=== PATIENT | male | born 1970 | race Hispanic/Latino ===

== ENCOUNTER 2017-09-27 12:39 | Inpatient (IN) | payer MEDICAID, OTHER ==
[2017-09-27 12:44] VITALS: BMI 29.7
[2017-09-27 12:51] VITALS: O2SAT 96
--- NOTE | 2017-09-27 12:51 | ED PDOC ---
Arrival/HPI - General Time Seen by Provider: 09/27/17 12:46 Historian: Patient, Other (Chart from [facility]) - History of Present Illness Narrative History of Present Illness (Text): 09/27/17 12:47 A 47 year old male, whose past medical history includes depression, transferred to the emergency department from [facility] for psych admission. Chart reviewed, patient complained of worsening depression 2 nights ago. He stated he wanted to open his gun safe and take the gun to shoot his and himself. On evaluation, patient reports a mild headache since this morning but denies any fever, chills, nausea, vomiting, abdominal pain, chest pain, shortness of breath or any other complaints. Patient denies any drug or alcohol use. Past Medical History - Provider Review Nursing Documentation Reviewed: Yes Family/Social History - Physician Review Nursing Documentation Reviewed: Yes Family/Social History: No Known Family HX Allergies/Home Meds Allergies/Adverse Reactions: Allergies No Known Allergies Allergy (Verified 09/27/17 12:44) Home Medications: Home Meds Medication Instructions Recorded Confirmed Lorazepam [Ativan] 1 mg PO PRN PRN 09/27/17 09/27/17 buPROPion [Bupropion HCl] 300 mg PO DAILY 09/27/17 09/27/17 Review of Systems - Physician Review All systems were reviewed & negative as marked: Yes - Review of Systems Constitutional: absent: Fevers, Night Sweats Respiratory: absent: SOB Cardiovascular: absent: Chest Pain Gastrointestinal: absent: Abdominal Pain, Nausea, Vomiting Neurological: Headache Psychiatric: Depression, Suicidal Ideation, Other (Homicidal ideation) Physical Exam Vital Signs Temp Pulse Resp BP Pulse Ox 09/27/17 12:50 97.5 F L 67 18 130/75 96 Appearance: Positive for: Well-Appearing, Non-Toxic, Comfortable Pain Distress: None Mental Status: Positive for: Alert and Oriented X 3 - Systems Exam Head: Present: Atraumatic, Normocephalic Pupils: Present: PERRL Extroacular Muscles: Present: EOMI Conjunctiva: Present: Normal Mouth: Present: Moist Mucous Membranes Neck: Present: Normal Range of Motion Respiratory/Chest: Present: Clear to Auscultation, Good Air Exchange. No: Respiratory Distress, Accessory Muscle Use Cardiovascular: Present: Regular Rate and Rhythm, Normal S1, S2. No: Murmurs Abdomen: Present: Normal Bowel Sounds. No: Tenderness, Distention, Peritoneal Signs Back: Present: Normal Inspection Upper Extremity: Present: Normal Inspection. No: Cyanosis, Edema Lower Extremity: Present: Normal Inspection. No: Edema Neurological: Present: GCS=15, CN II-XII Intact, Speech Normal Skin: Present: Warm, Dry, Normal Color. No: Rashes Psychiatric: Present: Alert, Oriented x 3, Depressed Mood, Suicidal Ideation, Homicidal Ideation Medical Decision Making ED Course and Treatment: 09/27/17 12:47 Impression: A 47 year old male sent in for psych admission. Patient complains of a mild headache. Differential Diagnosis included but are not limited to: Depression, Suicidal ideation, Homicidal ideation Plan: -- Tylenol for headache. No clinical suspician for SAH. Progress Notes: Patients chart reviewed. Normal labs. EKG shows sinus bradycardia at 56 BPM. -- Patient is medically cleared for psych admission under the service of Dr. Ave Youngblood. - Medication Orders Current Medication Orders: Aripiprazole (Abilify) 2.5 mg PO HS BIANCA Bupropion HCl (Wellbutrin Xl) 300 mg PO DAILY BIANCA Lorazepam (Ativan) 1 mg PO TID PRN; Protocol PRN Reason: Anxiety Lorazepam (Ativan) 2 mg IM Q6H PRN; Protocol PRN Reason: Agitation Zaleplon (Sonata) 5 mg PO HS PRN PRN Reason: Insomnia Ziprasidone (Geodon Cap) 20 mg PO BID PRN; Protocol PRN Reason: Agitation Ziprasidone (Geodon Inj) 20 mg IM Q8H PRN; Protocol PRN Reason: agitation/agression/psychosis Discontinued Medications Acetaminophen (Tylenol 325mg Tab) 650 mg PO STAT STA Stop: 09/27/17 12:48 Last Admin: 09/27/17 13:06 Dose: 650 mg [facility] Pain/Vitals Document 09/27/17 13:06 [facility] (Rec: 09/27/17 13:07 [facility]-[id number]) Pain Reassessment Is This A Pain ReAssessment? No - Scribe Statement The provider has reviewed the documentation as recorded by the Scribe Yanet Stephen Provider Scribe Attestation: All medical record entries made by the Scribe were at my direction and personally dictated by me. I have reviewed the chart and agree that the record accurately reflects my personal performance of the history, physical exam, medical decision making, and the department course for this patient. I have also personally directed, reviewed, and agree with the discharge instructions and disposition. Disposition/Present on Arrival - Present on Arrival Any Indicators Present on Arrival: No - Disposition Have Diagnosis and Disposition been Completed?: Yes Diagnosis: Depression, Suicidal ideation, Homicidal ideation Disposition: HOSPITALIZED Disposition Time: 12:48 Patient Plan: Admission Patient Problems: Current Active Problems Problem Status Onset Bipolar II disorder Acute Depression Acute KESHAI (generalized anxiety disorder) Acute Homicidal ideation Acute MDD (major depressive disorder) Acute Panic disorder Acute Suicidal ideation Acute Condition: FAIR
--- NOTE | 2017-09-27 13:59 | PCM.BM ---
<Heron Quick - Last Filed: 09/27/17 13:56> Treatment Plan Problems - Problems identified on initial assessmt SUICIDAL IDEATION Date Initiated: 09/27/17 Time Initiated: 13:56 Assessment reference: HP, NA, Other Status: Active HOPELESSNESS/HELPLESSNESS Date Initiated: 09/27/17 Time Initiated: 13:58 Assessment reference: HP, NA, Other Status: Active INEFFECTIVE COPING Date Initiated: 09/27/17 Time Initiated: 13:58 Assessment reference: HP, NA, Other Status: Active Treatment assets and liabiliti Patient Assests: adapts well, cooperative, resourceful, physically healthy, negotiates basic needs, cognitively intact Patient Liabilities: other - Milieu Protocol Maintain good personal hygiene: daily Encourage regular showers, daily Remind patient to perform daily oral care, daily Assist patient to perform ADL's Maintain personal safety: daily Educate patient to report safety concerns to staff, daily Monitor environment for contraband/sharps Medication safety: Monitor for expected outcome, potential side effects: daily, Assess barriers to learning: daily, Assess readiness for medication education: daily Discharge/Continuing Care - Education Needs Education Needs: Patient Medication, Patient Diagnosis/Disease Process, Patient Coping Skills, Patient Anger Management skills, Patient Community resources, Patient Activities of Daily Living, Patient Uses of Medical Equipment, Patient Health Practices/Safety, Patient Personal Hygiene/Grooming, Patient Aftercare Safety Plan - Discharge Discharge Criteria: Free of Suicidal thoughts, Free of Homicidal thoughts, Free of agitation, Normal sleep pattern, Ability to care for self <Ave Youngblood - Last Filed: 09/27/17 14:42> - Diagnosis (1) KESHIA (generalized anxiety disorder) Status: Acute Interventions: 09/27/17 14:43 Psychoeducation Psychopharmacology/adjustment of medications as needed/ monitoring possible side effects Evaluate pt on daily basis Discussion of importance of being compliant with medications and follow up appointments Suicide and homicide risk assessment and prevention, coping strategies, safety plan Reduction of symptoms Relaxation techniques and breathing exercises Improve functional status Family involvement Cognitive behavioral therapy as outpatient (2) Panic disorder Status: Acute Interventions: 09/27/17 14:43 Psychoeducation Psychopharmacology/adjustment of medications as needed/ monitoring possible side effects Evaluate pt on daily basis Discussion of importance of being compliant with medications and follow up appointments Suicide and homicide risk assessment and prevention, coping strategies, safety plan Reduction of symptoms Relaxation techniques and breathing exercises Improve functional status Family involvement Cognitive behavioral therapy as outpatient (3) Bipolar II disorder Status: Acute Interventions: 09/27/17 14:43 Psychoeducation Psychopharmacology/adjustment of medications as needed/ monitoring possible side effects Monitor blood level of mood stabilizers Evaluate pt on daily basis Compliance with medications and follow up appointments Suicide and homicide risk assessment and prevention, coping strategies, safety plan Relapse prevention Reduction of symptoms Improve functional status Family involvement As outpatient: cognitive behavioral therapy <Fatmata Call - Last Filed: 09/29/17 16:26>
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
[2017-09-28 07:30] VITALS: RESP 20
[2017-09-28 08:34] LABS: GLUCOSE,FASTING 91 mg/dL (65-110); HDL CHOLESTEROL 38 mg/dL (29-60)
[2017-09-28 08:45] LABS: LDL CHOLESTEROL 122 mg/dL (0-129)
[2017-09-28 08:51] LABS: FREE T4 0.93 ng/dL (0.78-2.19)
[2017-09-28] MEDS: buPROPion 300 mg/24 Hours XL Tab PO SCH (09:02)
[2017-09-28 09:46] LABS: BASO # 0.01 K/mm3 (0.0-2.0); BASO % 0.2 % (0.0-3.0); EOS # 0.1 (0.0-0.7); EOS % 1.8 % (1.5-5.0); GRAN # 3.93 (1.4-6.5); GRAN % 65.8 % (50.0-68.0); HEMOGLOBIN 15.2 g/dL (14.0-18.0); LYMPH # 1.1 (1.2-3.4); LYMPH % 18.7 % (22.0-35.0); MEAN CORPUSCULAR HEMOGLOBIN 31.5 pg (25.0-35.0); MEAN CORPUSCULAR HGB CONC 35.3 g/dl (31.0-37.0); MEAN PLATELET VOLUME 9.7 fl (7.0-11.0); MONO # 0.8 (0.1-0.6); MONO % 13.5 % (1.0-6.0); RBC 4.83 10^6/uL (3.5-6.1); RED CELL DISTRIBUTION WIDTH 13.2 % (11.5-14.5)
[2017-09-28] MEDS: Benzocaine/Menthol (Cepacol) Lozenge MT PRN ×2 (10:40→21:20)
--- NOTE | 2017-09-28 15:21 | PCM.PYCHPN ---
Psychiatric Progress Note - Psychiatric Progress Note Patient seen today, length of contact: 30min Patient Chief Complaint: "I don't find this hospitalization is beneficial for me, usually I am doing well on 1:1 therapy", at the same time pt did not complete his assignments from yesterday. Problems Identified/Issues Discussed: Suicide/ homicide prevention, past psychiatric h/o, current psychiatric symptoms , medical problems, risk/benefits and alternatives of medications, medications compliance, coping strategies, substance abuse h/o, relapse prevention, importance of follow up with psychiatrist and therapist, discharge plan. Medical Problems: pt is relatively healthy Diagnostic Results: 09/28/17 09:38 Lab Results 09/28/17 09:38: WBC 6.0, RBC 4.83, Hgb 15.2, Hct 43.0, MCV 89.0, MCH 31.5, MCHC 35.3, RDW 13.2, Plt Count 183, MPV 9.7, Gran % 65.8, Lymph % (Auto) 18.7 L, Edgar % (Auto) 13.5 H, Eos % (Auto) 1.8, Baso % (Auto) 0.2, Gran # 3.93, Lymph # (Auto) 1.1 L, [place] # (Auto) 0.8 H, Eos # (Auto) 0.1, Baso # (Auto) 0.01 09/28/17 08:00: Free T4 0.93, TSH 3rd Generation 2.12 09/28/17 08:00: Fasting Glucose 91, Triglycerides 66, Cholesterol 174, LDL Cholesterol Direct 122, HDL Cholesterol 38 Vital Signs Temp Pulse Resp BP Pulse Ox 09/28/17 07:29 98.0 F 58 L 20 128/87 09/27/17 16:00 58 L 128/87 09/27/17 12:50 97.5 F L 67 18 130/75 96 DSM 5 Symptoms Update: shortly patient is a 47 year old male, , two kids (boy 14 yo and girl 10yo), 1 previous psychiatric admission at [facility] in August,, two previous suicidal attempts including cutting himself "years back", and status post intentional overdose in August on Valium and ativan, initially patient was referred to [facility] by therapist at IOP program after patient verbalize thoughts or harming his as well as himself by using a gun. pt was transferred to [facility] uneventfully, patient requires further evaluation and stabilization, observation, medication titration. pt was seen in his room, pt presented to be deeply depressed, was staying in bed , talking to this contract writer starring at one spot on the wall, pt also had flat affect. pt said he did not sleep last night that well. pt was offered sonata, risk, benefits and alternatives discussed. pt said his girlfriend was upset because "she found my text messages to my that I miss her", at the same time pt asked his mother to bring documents confirming that had multiple an affairs for "years", when was asked why he asked his mother to do so, pt had no answer. pt was given assignment to find what kind of life he wants to have, will f/u tomorrow. pt still presented depressed, hopeless, helpless, pt said that his did not file restraining order against him, pt also said as per his mother police took the gun out of house. pt tolerates meds well, no side effects observed or reported. AIMS 0, no EPS. Pt requested to have a family meeting with his Bettie. DSM 5 Diagnosis: bipolar II r/o mdd r/o KESHIA r/o panic disorder Medication Change: Yes (patricia red) Medical Record Reviewed: Yes Consults ordered or reviewed: medical consult called Mental Status Examination - Cognitive Function Orientation: Person, Place, Situation, Time Memory: Intact Attention: Poor Concentration: Poor Association: WNL Fund of Knowledge: WNL - Mood Mood: Depressed, Anxious - Affect Affect: Constricted, Other (and tearful) - Formal Thought Process Formal Thought Process: Circumstantial (and overinclusive) - Suicidal Ideation Suicidal Ideation: No Plan: pt adamantly denied thoughts of harming self or others. - Homicidal Ideation Homicidal Ideation: No Plan: denied thoughts of harming others. Goal/Treatment Plan - Goal/Treatment Plan Need for Continued Stay: Remain at risks for inpatient hospitalization, Severe depression anxiety, Discharge may exacerbated symptoms, Failed transitioning, Severe functional impairment Progress Toward Problem(s) and Goals/Treatment Plan: Milieu/structure/supportive therapy Medical consult appreciated, see medical team note for more detailed info SW consultation for discharge plan and social issues Med management Lorazepam [Ativan] 1 mg POtid prn for anxiety buPROPion [Bupropion HCl] 300 mg PO DAILY will be continued, for depression abilify 5mg po hs for mood stabilization sonata 5mg po hs for insomnia Family involvement Follow up on labs Will monitor closely Pt was educated about risk/benefits and alternatives of medications, coping strategies (safety plan, suicide prevention), relapse prevention, importance of follow up with psychiatrist and therapist, stay away from drugs/alcohol/smoking Estimated Date of D/C: 10/03/17 - Smoking Cessation Smoking Cessation Initiated: No Reason for not providing: denied smoking
--- NOTE | 2017-09-28 16:03 | CP.PCM.HP ---
Past Patient History - Past Social History Smoking Status: Never Smoked - CARDIAC Hx Cardiac Disorders: No - PULMONARY Hx Respiratory Disorders: No - NEUROLOGICAL Hx Neurological Disorder: No - HEENT Hx HEENT Problems: No - RENAL Hx Chronic Kidney Disease: No - ENDOCRINE/METABOLIC Hx Endocrine Disorders: No - HEMATOLOGICAL/ONCOLOGICAL Hx Blood Disorders: No - INTEGUMENTARY Hx Dermatological Problems: No - MUSCULOSKELETAL/RHEUMATOLOGICAL Hx Musculoskeletal Disorders: No - GASTROINTESTINAL Hx Gastrointestinal Disorders: No - GENITOURINARY/GYNECOLOGICAL Hx Genitourinary Disorders: No - PSYCHIATRIC Hx Substance Use: No - SURGICAL HISTORY Hx Surgeries: No Meds Allergies/Adverse Reactions: Allergies Allergy/AdvReac Type Severity Reaction Status Date / Time No Known Allergies Allergy Verified 09/28/17 02:27 Results - Vital Signs Recent Vital Signs: Last Vital Signs Temp 98.0 F 09/28/17 07:29 Pulse 58 L 09/28/17 07:29 Resp 20 09/28/17 07:29 BP 128/87 09/28/17 07:29 Pulse Ox 96 09/27/17 12:50 - Labs Result Diagrams: 09/28/17 09:38 Labs: Laboratory Results - last 24 hr 09/28/17 09/28/17 09/28/17 08:00 08:00 09:38 WBC 6.0 RBC 4.83 Hgb 15.2 Hct 43.0 MCV 89.0 MCH 31.5 MCHC 35.3 RDW 13.2 Plt Count 183 MPV 9.7 Gran % 65.8 Lymph % (Auto) 18.7 L [place] % (Auto) 13.5 H Eos % (Auto) 1.8 Baso % (Auto) 0.2 Gran # 3.93 Lymph # (Auto) 1.1 L [place] # (Auto) 0.8 H Eos # (Auto) 0.1 Baso # (Auto) 0.01 Fasting Glucose 91 Triglycerides 66 Cholesterol 174 LDL Cholesterol Direct 122 HDL Cholesterol 38 Free T4 0.93 TSH 3rd Generation 2.12
--- NOTE | 2017-09-29 04:19 | CP.PCM.CON ---
<Chandana Fernández - Last Filed: 09/29/17 04:16> History of Present Illness - History of Present Illness History of Present Illness: Patient is a 47 year old male with a past medical history of benign prostatic hyperplasia and depression presenting to [facility] with complaints of suicidal and homicidal ideations. Patient also complains of sore throat, cough, and sinus headache which he suffers from time to time. Patient denies fevers, chills, nausea, vomiting, body aches, diarrhea, abdominal pain. Medications: denies Social history: denies alcohol, tobacco, illicit drug use. Lives alone in [place], [place]. Family history: maternal- gynecological cancers Allergies: NKDA Surgical history: denies Review of Systems - Constitutional Constitutional: Headache. absent: Chills, Fever - EENT Eyes: absent: Blurred Vision, Change in Vision Ears: absent: Ear Discharge, Ear Pain Nose/Mouth/Throat: Nasal Congestion. absent: Nasal Discharge - Cardiovascular Cardiovascular: absent: Chest Pain, Chest Pain at Rest - Respiratory Respiratory: Cough. absent: Dyspnea - Gastrointestinal Gastrointestinal: absent: Diarrhea, Nausea, Vomiting - Genitourinary Genitourinary: Difficulty Urinating, Urinary Hesitance. absent: Dysuria - Musculoskeletal Musculoskeletal: absent: Back Pain, Deformity - Integumentary Integumentary: absent: Change in Hair, Change in Nails Past Patient History - Past Social History Smoking Status: Never Smoked - CARDIAC Hx Cardiac Disorders: No - PULMONARY Hx Respiratory Disorders: No - NEUROLOGICAL Hx Neurological Disorder: No - HEENT Hx HEENT Problems: No - RENAL Hx Chronic Kidney Disease: No - ENDOCRINE/METABOLIC Hx Endocrine Disorders: No - HEMATOLOGICAL/ONCOLOGICAL Hx Blood Disorders: No - INTEGUMENTARY Hx Dermatological Problems: No - MUSCULOSKELETAL/RHEUMATOLOGICAL Hx Musculoskeletal Disorders: No - GASTROINTESTINAL Hx Gastrointestinal Disorders: No - GENITOURINARY/GYNECOLOGICAL Hx Genitourinary Disorders: No - PSYCHIATRIC Hx Substance Use: No - SURGICAL HISTORY Hx Surgeries: No Meds Allergies/Adverse Reactions: Allergies Allergy/AdvReac Type Severity Reaction Status Date / Time No Known Allergies Allergy Verified 09/28/17 02:27 - Medications Medications: Current Medications Acetaminophen (Tylenol 325mg Tab) 650 mg PO Q6H PRN PRN Reason: Fever >100.4 F Last Admin: 09/28/17 10:41 Dose: 650 mg Aripiprazole (Abilify) 5 mg PO HS BIANCA Last Admin: 09/28/17 21:18 Dose: 5 mg Benzocaine/Menthol (Cepacol Sore Throat) 1 zheng MT Q2H PRN PRN Reason: Sore Throat Last Admin: 09/28/17 21:20 Dose: 1 zheng Bupropion HCl (Wellbutrin Xl) 300 mg PO DAILY BIANCA Last Admin: 09/28/17 09:02 Dose: 300 mg Lorazepam (Ativan) 1 mg PO TID PRN; Protocol PRN Reason: Anxiety Last Admin: 09/28/17 04:57 Dose: 1 mg Lorazepam (Ativan) 2 mg IM Q6H PRN; Protocol PRN Reason: Agitation Sodium Chloride (Vermillion Nasal [place]) 0 ml NS DAILY PRN PRN Reason: NASAL CONGESTION Zaleplon (Sonata) 5 mg PO HS PRN PRN Reason: Insomnia Last Admin: 09/27/17 21:25 Dose: 5 mg Ziprasidone (Geodon Cap) 20 mg PO BID PRN; Protocol PRN Reason: Agitation Ziprasidone (Geodon Inj) 20 mg IM Q8H PRN; Protocol PRN Reason: agitation/agression/psychosis Physical Exam - Head Exam Head Exam: ATRAUMATIC, NORMAL INSPECTION, NORMOCEPHALIC - Eye Exam Eye Exam: EOMI, Normal appearance - ENT Exam ENT Exam: Mucous Membranes Moist Additional comments: no exudates on throat exam - Neck Exam Neck exam: Positive for: Normal Inspection - Respiratory Exam Respiratory Exam: Clear to Auscultation Bilateral, NORMAL BREATHING PATTERN. absent: Rhonchi, Wheezes - GI/Abdominal Exam GI & Abdominal Exam: Normal Bowel Sounds, Soft - Extremities Exam Extremities exam: Positive for: normal inspection - Back Exam Back exam: NORMAL INSPECTION - Skin Skin Exam: Intact, Normal Color, Warm Results - Vital Signs Recent Vital Signs: Last Vital Signs Temp 97.2 F L 09/28/17 11:41 Pulse 59 L 09/28/17 16:00 Resp 20 09/28/17 07:29 BP 123/74 09/28/17 16:00 Pulse Ox 96 09/27/17 12:50 - Labs Result Diagrams: 09/28/17 09:38 Labs: Laboratory Results - last 24 hr 09/28/17 09/28/17 09/28/17 08:00 08:00 08:00 WBC RBC Hgb Hct MCV MCH MCHC RDW Plt Count MPV Gran % Lymph % (Auto) Wayne % (Auto) Eos % (Auto) Baso % (Auto) Gran # Lymph # (Auto) [place] # (Auto) Eos # (Auto) Baso # (Auto) Fasting Glucose 91 Triglycerides 66 Cholesterol 174 LDL Cholesterol Direct 122 HDL Cholesterol 38 Free T4 0.93 TSH 3rd Generation 2.12 RPR Nonreactive 09/28/17 09:38 WBC 6.0 RBC 4.83 Hgb 15.2 Hct 43.0 MCV 89.0 MCH 31.5 MCHC 35.3 RDW 13.2 Plt Count 183 MPV 9.7 Gran % 65.8 Lymph % (Auto) 18.7 L Wayne % (Auto) 13.5 H Eos % (Auto) 1.8 Baso % (Auto) 0.2 Gran # 3.93 Lymph # (Auto) 1.1 L Wayne # (Auto) 0.8 H Eos # (Auto) 0.1 Baso # (Auto) 0.01 Fasting Glucose Triglycerides Cholesterol LDL Cholesterol Direct HDL Cholesterol Free T4 TSH 3rd Generation RPR Assessment & Plan - Assessment and Plan (Free Text) Assessment: Patient is a 47 year old male with a past medical history of benign prostatic hyperplasia and depression presenting to [facility] with complaints of suicidal and homicidal ideations. Patient also complains of sore throat, cough, and sinus headache which he suffers from time to time. Plan: Medical Clearance: Patient is medically cleared from medicine standpoint Upper respiratory symptoms -Afebrile, normal WBC -Nasal spray, tylenol, cepacol -if symptoms return or worsen, please reconsult -Patient states he follows regularly with his PMD regarding BPH Case discussed and reviewed with Dr. Naeem Fernández PGY1 <Leilani Hartley - Last Filed: 09/29/17 18:00> Meds - Medications Medications: Current Medications Acetaminophen (Tylenol 325mg Tab) 650 mg PO Q6H PRN PRN Reason: Fever >100.4 F Last Admin: 09/29/17 16:09 Dose: 650 mg Aripiprazole (Abilify) 5 mg PO HS BIANCA Last Admin: 09/28/17 21:18 Dose: 5 mg Ascorbic Acid (Vitamin C 500 Mg Tab) 500 mg PO DAILY BIANCA Last Admin: 09/29/17 15:18 Dose: 500 mg Benzocaine/Menthol (Cepacol Sore Throat) 1 zheng MT Q2H PRN PRN Reason: Sore Throat Last Admin: 09/29/17 16:09 Dose: 1 zheng Bupropion HCl (Wellbutrin Xl) 300 mg PO DAILY BIANCA Last Admin: 09/29/17 08:11 Dose: 300 mg Lorazepam (Ativan) 1 mg PO TID PRN; Protocol PRN Reason: Anxiety Last Admin: 09/28/17 04:57 Dose: 1 mg Lorazepam (Ativan) 2 mg IM Q6H PRN; Protocol PRN Reason: Agitation Sodium Chloride (Vermillion Nasal [place]) 0 ml NS DAILY PRN PRN Reason: NASAL CONGESTION Zaleplon (Sonata) 5 mg PO HS PRN PRN Reason: Insomnia Last Admin: 09/27/17 21:25 Dose: 5 mg Ziprasidone (Geodon Cap) 20 mg PO BID PRN; Protocol PRN Reason: Agitation Ziprasidone (Geodon Inj) 20 mg IM Q8H PRN; Protocol PRN Reason: agitation/agression/psychosis Results - Vital Signs Recent Vital Signs: Last Vital Signs Temp 98.1 F 09/29/17 07:34 Pulse 53 L 09/29/17 07:34 Resp 20 09/29/17 07:34 BP 112/68 09/29/17 07:34 Pulse Ox 96 09/27/17 12:50 - Labs Result Diagrams: 09/28/17 09:38 Attending/Attestation - Attestation I have personally seen and examined this patient.: Yes I have fully participated in the care of the patient.: Yes I have reviewed all pertinent clinical information: Yes Notes (Text): I have seen and examined the patient at bedside. Agree with the above note with the following additions/ exceptions: Briefly this is 47 year old male with history of depression who was admitted for evaluation of homicidal and suicidal ideation. Patient had mild URI symptoms earlier however denies any complaints at this time. Blood work reviewed. Thanks for the consult.We will sign off at this time. Please reconsult prn. Upon discharge patient will follow up with PMD of choice. Dr Leilani Hartley
[2017-09-29] MEDS: buPROPion 300 mg/24 Hours XL Tab PO SCH (08:11)
[2017-09-29] MEDS: Benzocaine/Menthol (Cepacol) Lozenge MT PRN ×3 (11:58→21:20)
--- NOTE | 2017-09-29 16:42 | PCM.PYCHPN ---
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 Medical Problems: pt is relatively healthy Diagnostic Results: 09/28/17 09:38 Lab Results 09/28/17 09:38: WBC 6.0, RBC 4.83, Hgb 15.2, Hct 43.0, MCV 89.0, MCH 31.5, MCHC 35.3, RDW 13.2, Plt Count 183, MPV 9.7, Gran % 65.8, Lymph % (Auto) 18.7 L, [place] % (Auto) 13.5 H, Eos % (Auto) 1.8, Baso % (Auto) 0.2, Gran # 3.93, Lymph # (Auto) 1.1 L, [place] # (Auto) 0.8 H, Eos # (Auto) 0.1, Baso # (Auto) 0.01 09/28/17 08:00: Free T4 0.93, TSH 3rd Generation 2.12 09/28/17 08:00: Fasting Glucose 91, Triglycerides 66, Cholesterol 174, LDL Cholesterol Direct 122, HDL Cholesterol 38 Vital Signs Temp Pulse Resp BP Pulse Ox 09/28/17 07:29 98.0 F 58 L 20 128/87 09/27/17 16:00 58 L 128/87 09/27/17 12:50 97.5 F L 67 18 130/75 96 Temp Pulse Resp BP Pulse Ox 98.1 F 53 L 20 112/68 96 09/29/17 07:34 09/29/17 07:34 09/29/17 07:34 09/29/17 07:34 09/27/17 12:50 DSM 5 Symptoms Update: shortly patient is a 47 year old male, , two kids (boy 14 yo and girl 10yo), 1 previous psychiatric admission at [facility] in August,, two previous suicidal attempts including cutting himself "years back", and status post intentional overdose in August on Valium and ativan, initially patient was referred to [facility] by therapist at IOP program after patient verbalize thoughts or harming his as well as himself by using a gun. pt was transferred [place] [facility] [place], patient requires further evaluation and stabilization, observation, medication titration. pt was seen at the treatment team meeting room with a social insurance administrator Ms. Hurst. Patient presented to be much calmer to compare with the initial assessment, patient presented with better organized thoughts and seems to be not so much overwhelmed. Patient reported that he was not able to sleep, asked if any medication was prescribed for him, patient was educated again about risk, benefits, and alternatives of meds. Patient reported that right now he will be making decisions about his own life and patient came to know that if she will stay with his most likely he will be "unhappy". Patient opened up about his suicidal plan in May 2017 to the , patient reported that he wanted to end up his life by gunshot in the [place], patient reported that he postponed it because his had the surgery back then. Patient denied any thoughts of harming himself or others at the moment of the interview. pt responded well to therapy, pt was educated about the healthy ways of coping with stress, pt seems to like the idea of physical exercise and activities when pt is angry "I never thought of it, it seems I could like it". pt tolerates meds well, no side effects observed or reported. AIMS 0, no EPS. Pt requested to have a family meeting with his Bettie, contacted her 09/29, as per prosecutor is coming today to take a gun from the house, will f /u on that. DSM 5 Diagnosis: bipolar II r/o mdd r/o KESHIA r/o panic disorder Medication Change: No (abilify incresed yesterday) Medical Record Reviewed: Yes Consults ordered or reviewed: medical consult called Mental Status Examination - Cognitive Function Orientation: Person, Place, Situation, Time Memory: Intact Attention: Poor (somewhat bhargav) Concentration: Poor (some improvement) Association: WNL Fund of Knowledge: WNL - Mood Mood: Depressed, Anxious - Affect Affect: Constricted, Other (and tearful) - Formal Thought Process Formal Thought Process: No Impairment (well organized) - Suicidal Ideation Suicidal Ideation: No - Homicidal Ideation Homicidal Ideation: No Goal/Treatment Plan - Goal/Treatment Plan Need for Continued Stay: Remain at risks for inpatient hospitalization, Severe depression anxiety, Discharge may exacerbated symptoms, Failed transitioning, Severe functional impairment Progress Toward Problem(s) and Goals/Treatment Plan: Milieu/structure/supportive therapy Medical consult appreciated, see medical team note for more detailed info SW consultation for discharge plan and social issues Med management Lorazepam [Ativan] 1 mg POtid prn for anxiety buPROPion [Bupropion HCl] 300 mg PO DAILY will be continued, for depression abilify 5mg po hs for mood stabilization sonata 5mg po hs for insomnia Family involvement Follow up on labs Will monitor closely Pt was educated about risk/benefits and alternatives of medications, coping strategies (safety plan, suicide prevention), relapse prevention, importance of follow up with psychiatrist and therapist, stay away from drugs/alcohol/smoking Estimated Date of D/C: 10/03/17
[2017-09-30] MEDS: buPROPion 300 mg/24 Hours XL Tab PO SCH (08:39)
--- NOTE | 2017-09-30 10:15 | PCM.PYCHPN ---
Psychiatric Progress Note - Psychiatric Progress Note Patient seen today, length of contact: 25 min Patient Chief Complaint: "exhausted, frustrated and hasn't been sleeping for three nights in a row" Problems Identified/Issues Discussed: I reviewed assessment a recent notes. Patient was interviewed at bedside. He is oriented to month, year, location and circumstances. Grooming is acceptable. Patient is superficially engaged with questioning and affect is irritable. Patient reports that he is "exhausted, frustrated and hasn't been sleeping for three nights in a row". Patient feels that Abilify might be keeping him up at night and requests that dosing be changed to the morning. Responses are generally relevant and he denies having any perceptual disturbance at this time. He does not appear to be responding to internal stimuli. Patient denies any other side effects, discomfort or pain. Staff notes indicate the patient has been visible on the unit and attending groups on the unit. Interactive at times. There were no behavioral issues overnight. Diagnostic Results: bipolar II r/o mdd r/o KESHIA r/o panic disorder Medication Change: No (abilify changed to AM) Medical Record Reviewed: Yes Mental Status Examination - Cognitive Function Orientation: Person, Place, Situation, Time Memory: Intact Attention: Poor (somewhat bhargav) Concentration: Poor (some improvement) Association: WNL Fund of Knowledge: WNL - Mood Mood: Depressed, Anxious - Affect Affect: Constricted, Other (and tearful) - Formal Thought Process Formal Thought Process: No Impairment (well organized) - Suicidal Ideation Suicidal Ideation: No - Homicidal Ideation Homicidal Ideation: No Goal/Treatment Plan - Goal/Treatment Plan Need for Continued Stay: Remain at risks for inpatient hospitalization, Severe depression anxiety, Discharge may exacerbated symptoms, Failed transitioning, Severe functional impairment Progress Toward Problem(s) and Goals/Treatment Plan: c/w current tx and plan Abilify 5 mg HS changed to 5 mg po AM on 09/30/17 as patient feels it may be contributing to insomnia Sonata increased to 10 mg HS prn on 09/30/17 for insomnia No new weekend labs thus far Vitals reviewed and noted below: Selected Entries 09/30/17 07:53 Temperature 97.8 F Pulse Rate 52 L Respiratory 20 Rate Blood Pressure 105/64 Estimated Date of D/C: 10/03/17
[2017-09-30] MEDS: Amoxicillin-Clav 875-125 mg Tab PO SCH (17:13)
[2017-09-30] MEDS: Benzocaine/Menthol (Cepacol) Lozenge MT PRN (20:53)
[2017-10-01] MEDS: Amoxicillin-Clav 875-125 mg Tab PO SCH ×2 (06:20→18:30)
[2017-10-01] MEDS: buPROPion 300 mg/24 Hours XL Tab PO SCH (08:12)
--- NOTE | 2017-10-01 12:08 | PCM.PYCHPN ---
Psychiatric Progress Note - Psychiatric Progress Note Patient seen today, length of contact: 25 min Patient Chief Complaint: "a little better" Problems Identified/Issues Discussed: I reviewed recent notes and interviewed patient in the dayroom. He remains oriented to month, year, location and circumstances. Grooming is acceptable. Patient is superficially engaged with questioning and affect remains a little irritable. Patient reports that he slept a little better last night since Abilify was switched to the AM. He is planning to use prn sleep aid tonight to see if sleep further improves. Upper respiratory symptoms are improving, patient started antibiotics yesterday. As a result patient feels mood is little better Patients responses are generally coherent and relevant. He denies having any perceptual disturbance at this time and does not appear to be responding to internal stimuli. Patient denies any other side effects, discomfort or pain. Staff notes indicate the patient has been visible on the unit and attending groups on the unit. Interactive at times and had a good day yesterday. There were no behavioral issues over the weekend. Diagnostic Results: bipolar II r/o mdd r/o KESHIA r/o panic disorder Medication Change: No (abilify changed to AM) Medical Record Reviewed: Yes Mental Status Examination - Cognitive Function Orientation: Person, Place, Situation, Time Memory: Intact Attention: Poor (somewhat bhargav) Concentration: Poor (some improvement) Association: WNL Fund of Knowledge: WNL - Mood Mood: Depressed ("a little better"), Anxious - Affect Affect: Constricted, Other (and tearful) - Formal Thought Process Formal Thought Process: No Impairment (well organized) - Suicidal Ideation Suicidal Ideation: No - Homicidal Ideation Homicidal Ideation: No Goal/Treatment Plan - Goal/Treatment Plan Need for Continued Stay: Remain at risks for inpatient hospitalization, Severe depression anxiety, Discharge may exacerbated symptoms, Failed transitioning, Severe functional impairment Progress Toward Problem(s) and Goals/Treatment Plan: * c/w current tx and plan * Abilify 5 mg HS changed to 5 mg po AM on 09/30/17 as patient felt it was contributing to insomnia * Sonata increased to 10 mg HS prn on 09/30/17 for insomnia * No new weekend labs * Vitals reviewed and noted below: 10/01/17 07:27 Temperature 97.8 F Pulse Rate 55 L Respiratory 20 Rate Blood Pressure 123/79 Estimated Date of D/C: 10/03/17
[2017-10-02] MEDS: buPROPion 300 mg/24 Hours XL Tab PO SCH (08:10)
[2017-10-02] MEDS: Amoxicillin-Clav 875-125 mg Tab PO SCH ×2 (09:23→17:08)
--- NOTE | 2017-10-02 17:08 | PCM.PYCHPN ---
Psychiatric Progress Note - Psychiatric Progress Note Patient seen today, length of contact: 25 min Patient Chief Complaint: "I feel much better, I think I am on right medications now" Problems Identified/Issues Discussed: Suicide/ homicide prevention, past psychiatric h/o, current psychiatric symptoms , medical problems, risk/benefits and alternatives of medications, medications compliance, coping strategies, substance abuse h/o, relapse prevention, importance of follow up with psychiatrist and therapist, discharge plan. Medical Problems: pt is relatively healthy Diagnostic Results: 09/28/17 09:38 Lab Results 09/28/17 09:38: WBC 6.0, RBC 4.83, Hgb 15.2, Hct 43.0, MCV 89.0, MCH 31.5, MCHC 35.3, RDW 13.2, Plt Count 183, MPV 9.7, Gran % 65.8, Lymph % (Auto) 18.7 L, [place] % (Auto) 13.5 H, Eos % (Auto) 1.8, Baso % (Auto) 0.2, Gran # 3.93, Lymph # (Auto) 1.1 L, [place] # (Auto) 0.8 H, Eos # (Auto) 0.1, Baso # (Auto) 0.01 09/28/17 08:00: Free T4 0.93, TSH 3rd Generation 2.12 09/28/17 08:00: Fasting Glucose 91, Triglycerides 66, Cholesterol 174, LDL Cholesterol Direct 122, HDL Cholesterol 38 Vital Signs Temp Pulse Resp BP Pulse Ox 09/28/17 07:29 98.0 F 58 L 20 128/87 09/27/17 16:00 58 L 128/87 09/27/17 12:50 97.5 F L 67 18 130/75 96 Temp Pulse Resp BP Pulse Ox 98.1 F 53 L 20 112/68 96 09/29/17 07:34 09/29/17 07:34 09/29/17 07:34 09/29/17 07:34 09/27/17 12:50 DSM 5 Symptoms Update: shortly patient is a 47 year old male, , two kids (boy 14 yo and girl 10yo), 1 previous psychiatric admission at [facility] in August,, two previous suicidal attempts including cutting himself "years back", and status post intentional overdose in August on Valium and ativan, initially patient was referred to [facility] by therapist at IOP program after patient verbalize thoughts or harming his as well as himself by using a gun. pt was transferred to [facility] uneventfully, patient requires further evaluation and stabilization, observation, medication titration. pt was seen at the hallway, pt presented much better, hygiene improved, affect is brighter, pt reported "much improvement", pt said "I am glad I met you and you are giving me right medications". pt is looking forward for the phone conference call with his Bettie tomorrow 10am. pt said that "I think the relationship is over, I will be never happy with her" . pt denied any angry feelings towards his or others, denied thoughts of harming self, pt said that he is happy to be alive. over the weekend no behavioral incidents, compliance with meds good, no side effects observed or reported. AIMS 0, no EPS. DSM 5 Diagnosis: bipolar II r/o mdd r/o KESHIA r/o panic disorder Medication Change: Yes (abilify changed to AM) Medical Record Reviewed: Yes Consults ordered or reviewed: medical consult called Mental Status Examination - Cognitive Function Orientation: Person, Place, Situation, Time Memory: Intact Attention: Poor (somewhat bhargav) Concentration: Poor (some improvement) Association: WNL Fund of Knowledge: WNL - Mood Mood: Depressed ("I feel better"), Anxious (I am less anxiousl) - Affect Affect: Constricted, Other (and tearful) - Formal Thought Process Formal Thought Process: No Impairment (well organized) - Suicidal Ideation Suicidal Ideation: No - Homicidal Ideation Homicidal Ideation: No Goal/Treatment Plan - Goal/Treatment Plan Need for Continued Stay: Remain at risks for inpatient hospitalization, Severe depression anxiety, Discharge may exacerbated symptoms, Failed transitioning, Severe functional impairment Progress Toward Problem(s) and Goals/Treatment Plan: Milieu/structure/supportive therapy Medical consult appreciated, see medical team note for more detailed info SW consultation for discharge plan and social issues Med management Lorazepam [Ativan] 1 mg POtid prn for anxiety buPROPion [Bupropion HCl] 300 mg PO DAILY will be continued, for depression abilify 5mg po daily for mood stabilization sonata 5mg po hs for insomnia Family involvement, phone conference call at am with his Follow up on labs Will monitor closely Pt was educated about risk/benefits and alternatives of medications, coping strategies (safety plan, suicide prevention), relapse prevention, importance of follow up with psychiatrist and therapist, stay away from drugs/alcohol/smoking Estimated Date of D/C: 10/03/17
[2017-10-03] MEDS: Amoxicillin-Clav 875-125 mg Tab PO SCH ×2 (06:39→18:46)
[2017-10-03 07:30] VITALS: TEMP 98
[2017-10-03] MEDS: buPROPion 300 mg/24 Hours XL Tab PO SCH (09:07)
--- NOTE | 2017-10-03 17:13 | PCM.PYCHPN ---
Psychiatric Progress Note - Psychiatric Progress Note Patient seen today, length of contact: 30 minutes Patient Chief Complaint: "I feel much better, I think I am on right medications now, I can't think straight" Problems Identified/Issues Discussed: Suicide/ homicide prevention, past psychiatric h/o, current psychiatric symptoms , medical problems, risk/benefits and alternatives of medications, medications compliance, coping strategies, substance abuse h/o, relapse prevention, importance of follow up with psychiatrist and therapist, discharge plan. Medical Problems: pt is relatively healthy Diagnostic Results: 09/28/17 09:38 Lab Results 09/28/17 09:38: WBC 6.0, RBC 4.83, Hgb 15.2, Hct 43.0, MCV 89.0, MCH 31.5, MCHC 35.3, RDW 13.2, Plt Count 183, MPV 9.7, Gran % 65.8, Lymph % (Auto) 18.7 L, Pershing % (Auto) 13.5 H, Eos % (Auto) 1.8, Baso % (Auto) 0.2, Gran # 3.93, Lymph # (Auto) 1.1 L, Pershing # (Auto) 0.8 H, Eos # (Auto) 0.1, Baso # (Auto) 0.01 09/28/17 08:00: Free T4 0.93, TSH 3rd Generation 2.12 09/28/17 08:00: Fasting Glucose 91, Triglycerides 66, Cholesterol 174, LDL Cholesterol Direct 122, HDL Cholesterol 38 Vital Signs Temp Pulse Resp BP Pulse Ox 09/28/17 07:29 98.0 F 58 L 20 128/87 09/27/17 16:00 58 L 128/87 09/27/17 12:50 97.5 F L 67 18 130/75 96 Temp Pulse Resp BP Pulse Ox 98.1 F 53 L 20 112/68 96 09/29/17 07:34 09/29/17 07:34 09/29/17 07:34 09/29/17 07:34 09/27/17 12:50 DSM 5 Symptoms Update: shortly patient is a 47 year old male, , two kids (boy 14 yo and girl 10yo), 1 previous psychiatric admission at [facility] in August,, two previous suicidal attempts including cutting himself "years back", and status post intentional overdose in August on Valium and ativan, initially patient was referred to [facility] by therapist at IOP program after patient verbalize thoughts or harming his as well as himself by using a gun. pt was transferred to [facility] uneventfully, patient requires further evaluation and stabilization, observation, medication titration. pt was seen at the treatment team meeting room for the phone conference call. pt said that he feels "much better", pt denied any thoughts of harming self or others, pt said that "it was very dark moment, I would never harm my or myself, but I was not thinking straight". coping strategies discussed, pt said "I learned to think about the consequences..", pt said he decided to stay in the old house and have an official separation. pt hopes to be involved into his kids life, pt wants to "raise them together, but I cannot see us as a family union with my ". pt seems to be sincere with his statements, wrote down his to do list, (two pages), pt said "I need to straight my finances, I want to start working out again", pt also said that he is planning to rent his old house and pay for his kids education and continue to support his family. From pt's Bettie side who was cold, superficially involved, only yes or no answers, as per police taken away the gun and no guns in the house. pt's said "I am happy to hear Rajesh is doing better". over the weekend no behavioral incidents, compliance with meds good, no side effects observed or reported. AIMS 0, no EPS. pt asked to change his sleeping meds, ambien started pt was also asked to see urologist because of frequent urinations and h/o prostate enlargement. DSM 5 Diagnosis: bipolar II r/o mdd r/o KESHIA r/o panic disorder Medication Change: Yes (abilify changed to AM) Medical Record Reviewed: Yes Consults ordered or reviewed: medical consult called, consult appreciated Urology consultation was called Mental Status Examination - Cognitive Function Orientation: Person, Place, Situation, Time Memory: Intact Attention: Poor (better) Concentration: Poor (some improvement) Association: WNL Fund of Knowledge: WNL - Mood Mood: Depressed ("I feel better"), Anxious (I am less anxiousl) - Affect Affect: Constricted (more reactive, mood congruent) - Speech Speech: Appropriate - Formal Thought Process Formal Thought Process: No Impairment (well organized) - Suicidal Ideation Suicidal Ideation: No - Homicidal Ideation Homicidal Ideation: No Goal/Treatment Plan - Goal/Treatment Plan Need for Continued Stay: Remain at risks for inpatient hospitalization, Severe depression anxiety, Discharge may exacerbated symptoms, Failed transitioning, Severe functional impairment Progress Toward Problem(s) and Goals/Treatment Plan: Milieu/structure/supportive therapy Medical consult appreciated, see medical team note for more detailed info SW consultation for discharge plan and social issues Med management Lorazepam [Ativan] 1 mg POtid prn for anxiety buPROPion [Bupropion HCl] 300 mg PO DAILY will be continued, for depression abilify 5mg po daily for mood stabilization sonata was discontinued Ambien 5 mg at the nighttime for insomnia Family involvement, phone conference call at am with his Follow up on labs Will monitor closely Pt was educated about risk/benefits and alternatives of medications, coping strategies (safety plan, suicide prevention), relapse prevention, importance of follow up with psychiatrist and therapist, stay away from drugs/alcohol/smoking Estimated Date of D/C: 10/05/17
[2017-10-04] MEDS: Amoxicillin-Clav 875-125 mg Tab PO SCH (05:23)
[2017-10-04 07:23] VITALS: BP 115/77; PULSE 55
[2017-10-04] MEDS: buPROPion 300 mg/24 Hours XL Tab PO SCH (09:00)
--- NOTE | 2017-10-04 17:16 | PCM.PYCHDC ---
Mental Status Examination - Mental Status Examination Orientation: Person, Place, Situation, Time Memory: Intact Mood: Neutral Affect: Broad (and mood congruent) Attention: WNL Concentration: WNL Association: WNL Fund of Knowledge: WNL Formal Thought Process: No Impairment Description of patient's judgement and insight: Pt has improved insight into mental and medical illness, pt was compliant with medications and unit rules and regulations, pt was going to groups, was calm, cooperative, socially appropriate, no behavioral incidents, no agitation, no aggression. Psychotic Thoughts and Behaviors: Pt denied v/a/t hallucinations, denied paranoid ideations, pt does not appear to be psychotic, and thought process is goal directed. Suicidal Ideation: No Current Homicidal Ideation?: No Plan: pt adamantly denied thoughts of harming self or others denied intent or plan. "when I was discharged from other hospital, I thought that in case things will not go right, suicide is an option, but now I feel so much better, I am anticipating discharge, I have so many plans in my head, I want to build a fire place and put chairs around it and to talk to my girlfriend about a lot of staff.., I am not angry towards nobody, I am ready to go.." Discharge Summary - Discharge Note Reason for Hospitalization: pt was transferred from the [facility] for evaluation of mood symptoms, inability to function, feeling of hopelessness, helplessness, possible suicidal ideation and homicidal ideation, pt requires observation/ stabilization med management. Psychiatric History (includes Medical, Family, Personal Hx): see HPI Laboratory Data: 09/28/17 09:38 Lab Results 09/28/17 09:38: WBC 6.0, RBC 4.83, Hgb 15.2, Hct 43.0, MCV 89.0, MCH 31.5, MCHC 35.3, RDW 13.2, Plt Count 183, MPV 9.7, Gran % 65.8, Lymph % (Auto) 18.7 L, Guthrie % (Auto) 13.5 H, Eos % (Auto) 1.8, Baso % (Auto) 0.2, Gran # 3.93, Lymph # (Auto) 1.1 L, Guthrie # (Auto) 0.8 H, Eos # (Auto) 0.1, Baso # (Auto) 0.01 09/28/17 08:00: RPR Nonreactive 09/28/17 08:00: Free T4 0.93, TSH 3rd Generation 2.12 09/28/17 08:00: Fasting Glucose 91, Triglycerides 66, Cholesterol 174, LDL Cholesterol Direct 122, HDL Cholesterol 38 Vital Signs Temp Pulse Resp BP Pulse Ox 10/04/17 07:23 98.0 F 55 L 20 115/77 10/03/17 15:55 68 139/80 10/03/17 07:29 98.0 F 51 L 20 123/78 10/02/17 15:00 63 127/71 10/02/17 07:22 98.4 F 50 L 20 142/83 10/01/17 16:00 61 134/82 10/01/17 07:27 97.8 F 55 L 20 123/79 09/30/17 16:00 66 138/86 09/30/17 07:53 97.8 F 52 L 20 105/64 09/29/17 22:18 65 149/84 09/29/17 07:34 98.1 F 53 L 20 112/68 09/28/17 16:00 59 L 123/74 09/28/17 11:41 97.2 F L 09/28/17 07:29 98.0 F 58 L 20 128/87 09/27/17 16:00 58 L 128/87 09/27/17 12:50 97.5 F L 67 18 130/75 96 Consultations:: List each consultation separately and include: 1. Reason for request. 2. Findings. 3. Follow-up Consultations: medical consult called, consult appreciated Urology consultation was called Summary of Hospital Course include:: 1. Description of specific treatment plan utilized for patients during their course of treatmen. 2. Summarize the time- course for resolution of acute symptoms and/or regressed behaviors. 3. Describe issues identified and worked on during hospitalization. 4. Describe medication utilized. 5. Describe medical problems identified and treated. 6. Reassessment of suicide risk Summary of Hospital Course: shortly patient is a 47 year old male, , two kids (boy 14 yo and girl 10yo), 1 previous psychiatric admission at [facility] in August,, two previous suicidal attempts including cutting himself "years back", and status post intentional overdose in August on Valium and ativan, initially patient was referred to [facility] by therapist at IOP program after patient verbalize thoughts or harming his as well as himself by using a gun. pt was transferred to [facility] uneventfully, patient requires further evaluation and stabilization, observation, medication titration. while pt was in the hospital, police took a gun out, pt has no access to guns now. at the time of admission pt presented to be hopeless, desperate, had suicidal ideation and homicidal ideation. during this hospitalization pt was dx with Bipolar spectrum disorder, pt was continued on all meds and this typewriter tester added Abilify 5mg po daily for mood stabilization. ativan, wellbutrin continued, pt was not able to sleep on sonata , this typewriter tester prescribed ambien. pt tolerated meds well, no side effects observed or reported. pt was attending groups, had good appetite and sleep. phone conference call took place, pt's did not express any concerns about her safety, did not obtain a restraining order. couple made a decision to separate. Temp Pulse Resp BP Pulse Ox 97.5 F L 67 18 130/75 96 09/27/17 12:50 09/27/17 12:50 09/27/17 12:50 09/27/17 12:50 09/27/17 12:50 Over the course of this hospitalization pt was attending groups, pt also had medication management, had therapeutic milieu. Overall pt improved significantly, pt's affect became brighter, depression improved, pt has realistic future oriented plans pt wants to go back to work ( pt owns a [employer] company), address his financial situation. Pt does not appear to be psychotic, or anxious, pt was socially appropriate, no behavioral issues, pts insight improved as well and soon pt deemed to be ready for discharge. At the time of the discharge pt denied been depressed, denied thoughts of harming self or others, denied psychotic symptoms, and pt does not appeared to be psychotic, denied been anxious, pt is not in imminent danger to self or others, will be following up at Dr. Villalobos on 10/19/17 at 2:30pm at [facility], information about follow up appointment, time and address provided to the pt, it is patient responsibility to follow up with outpatient clinic, PMD as well as specialists (see SW note for more detailed information). In case pt will need to obtain results of studies pending at discharge pt was provided with contact information of Psychiatric Inpatient unit [phone] as well as Medical Record Department [phone]. info about urologist provided, pt requested because of enlarged prostate pt does not use drugs, denied drinking alcohol, denied smoking. pt was provided with prescriptions for all of medications (please see medication reconciliation form) Pt was educated about safety plan in case of worsening of symptoms or in case of suicidal or homicidal ideation call 911 or go to the nearest ER, also was educated to take meds as prescribed and stay away from drugs, pt verbalized understanding. - Diagnosis (1) KESHIA (generalized anxiety disorder) Current Visit: Yes Status: Acute Priority: High (2) Panic disorder Current Visit: Yes Status: Acute Priority: High (3) Bipolar II disorder Current Visit: Yes Status: Acute Priority: High - Final Diagnosis (DSM 5) Condition upon Discharge: GOOD Disposition: HOME/ ROUTINE Follow-up Treatment Plan: At the time of the discharge pt denied been depressed, denied thoughts of harming self or others, denied psychotic symptoms, and pt does not appeared to be psychotic, denied been anxious, pt is not in imminent danger to self or others, will be following up at Dr. Villalobos on 10/19/17 at 2:30pm at [facility], information about follow up appointment, time and address provided to the pt, it is patient responsibility to follow up with outpatient clinic, PMD as well as specialists (see SW note for more detailed information). In case pt will need to obtain results of studies pending at discharge pt was provided with contact information of Psychiatric Inpatient unit [phone] as well as Medical Record Department [phone]. info about urologist provided, pt requested because of enlarged prostate pt does not use drugs, denied drinking alcohol, denied smoking. pt was provided with prescriptions for all of medications (please see medication reconciliation form) Pt was educated about safety plan in case of worsening of symptoms or in case of suicidal or homicidal ideation call 911 or go to the nearest ER, also was educated to take meds as prescribed and stay away from drugs, pt verbalized understanding. Prescriptions/Medication Reconciliation: ARIPiprazole [Abilify] 5 mg PO QAM #14 tab Bupropion HCl [Wellbutrin XL] 300 mg PO DAILY #14 t24 LORazepam [Ativan] 1 mg PO TID PRN #45 tab PRN Reason: Anxiety Zolpidem [Ambien] 5 mg PO HS PRN #14 tab PRN Reason: Insomnia - Smoking Cessation Smoking Cessation Medication prescribed: No Reason for not providing: does not smoke - Antipsychotic Medications Pt discharged on 2 or more routine antipsychotic medications: No
== END 2017-10-04 17:56 | disposition home or self-care (01) | DRG 430 ==
LOC: ED 12:39 → PSYC 12:48
PROVIDERS: ADMIT Psychiatry & Neurology Psychiatry; ATTEND Psychiatry & Neurology Psychiatry
DX: F31.81 Bipolar II disorder (principal); F41.1 Generalized anxiety disorder; F41.0 Panic disorder [episodic paroxysmal anxiety]; N40.0 Benign prostatic hyperplasia without lower urinary tract symptoms; J06.9 Acute upper respiratory infection, unspecified; G47.00 Insomnia, unspecified